=== PATIENT | male | born 1970 | race Caucasian/White ===

== ENCOUNTER 2019-03-12 00:04 | Emergency (ER) | payer MEDICAID ==
[~2019-03-12] VITALS: Ht 177.8 cm; Wt 80.3 kg
[2019-03-12 00:11] VITALS: Ht 177.8 cm; Wt 80.3 kg
[2019-03-12 01:07] LABS: BASOPHIL % 0.2 % (0-2); PLATELET COUNT 316 x10^3mcL (130-400); RED CELL DISTRIBUTION WIDTH 12.9 % (11.5-14.5)
[2019-03-12 01:43] LABS: ALBUMIN 3.2 g/dL (3.4-5.0); ALKALINE PHOSPHATASE 270 U/L (46-116); ALT/SGPT 24 U/L (16-63); AST/SGOT 4 U/L (15-37); BILIRUBIN TOTAL 0.48 mg/dL (0.20-1.00); CARBON DIOXIDE 31.8 mmol/L (21-32); CHLORIDE SERUM 93 mmol/L (98-107); GFR1 > 60 mL/min; MAGNESIUM 2.2 mg/dL (1.8-2.4); PHOSPHOROUS 4.2 mg/dL (2.5-4.9); POTASSIUM SERUM 4.3 mmol/L (3.5-5.1); SODIUM SERUM 130 mmol/L (136-145); TOTAL PROTEIN, SERUM 7.1 g/dL (6.4-8.2)
[2019-03-12 01:47] LABS: GLUCOSE SERUM 580 mg/dL (74-106)
[2019-03-12 06:12] VITALS: BP 135/85
== END 2019-03-12 06:12 | disposition home or self-care (01) ==
LOC: ED 00:04
PROVIDERS: Emergency Medicine
DX: E11.65 Type 2 diabetes mellitus with hyperglycemia (principal); I10 Essential (primary) hypertension; E78.00 Pure hypercholesterolemia, unspecified; Z76.0 Encounter for issue of repeat prescription
CPT/HCPCS: 82962; J1815; J1885; J7030; Q0092

== ENCOUNTER 2019-03-16 13:35 | Inpatient (IN) | payer MEDICAID ==
[~2019-03-16] VITALS: Ht 175.3 cm; Wt 80.3 kg
[2019-03-16 13:37] VITALS: Ht 175.3 cm; Wt 80.3 kg
--- NOTE | 2019-03-16 14:07 | NUR ---
PATIENT AAOX4 PRESENTS BACK TO THE ED S/P CALL THAT HIS LABS DONE A FEW DAYS AGO WERE ABNORMAL. PT PRESENTS IN TRIAGE WITH A HIGH BS OVER >500. PT ADMITS TO NOT BEING COMPLIANT WITH ANTIDIABETIC MEDS DUE SCRIPT /PHYSICIAN ISSUES. PT BREATHING E/U, SKIN WARM DRY AND INTACT. PT C/O BILATERAL LEG PAIN R/T NEUROPATHY. PATIENT PLACED ON MONITORS FOR FURTHER OBSERVATION. WILL CONTINUE TO MONITOR.
--- NOTE | 2019-03-16 14:18 | NUR ---
MEDICATED PER MD ORDERS- SEE EMR
--- NOTE | 2019-03-16 14:50 | NUR ---
MEDICATED PER MD ORDERS- SEE EMR
[2019-03-16 15:17] LABS: CALCIUM 8.6 mg/dL (8.5-10.1); CARBON DIOXIDE 30.6 mmol/L (21-32); CHLORIDE SERUM 98 mmol/L (98-107); CREATININE SERUM 1.1 mg/dL (0.7-1.3); GFR1 > 60 mL/min; POTASSIUM SERUM 4.5 mmol/L (3.5-5.1); SODIUM SERUM 135 mmol/L (136-145)
[2019-03-16 15:22] LABS: GLUCOSE SERUM 461 mg/dL (74-106)
--- NOTE | 2019-03-16 15:49 | NUR ---
REPORT GIVEN TO AB. TRACKING NUMBER:[id number]
[2019-03-16] MEDS ORDERED: GEODON80 MG PO (16:05)
[2019-03-16] MEDS ORDERED: DEPAKOTE ER500 MG PO (16:05)
[2019-03-16] MEDS ORDERED: METFORMIN HCL1000 MG PO (16:06)
[2019-03-16] MEDS ORDERED: PAXIL CR25 MG PO ×2 (16:06→16:07)
[2019-03-16] MEDS ORDERED: JANUVIA100 M1 PO (16:06)
[2019-03-16] MEDS ORDERED: TRAZODONE100 MG PO (16:07)
[2019-03-16] MEDS ORDERED: ASPIR 8181 MG PO (16:07)
[2019-03-16] MEDS ORDERED: LIPI20 PO (16:08)
[2019-03-16] MEDS ORDERED: NEU300 PO (16:10)
[2019-03-16] MEDS ORDERED: AUTOJECT 21 EACH SQ (16:10)
[2019-03-16 18:18] LABS: MAGNESIUM 1.9 mg/dL (1.8-2.4)
--- NOTE | 2019-03-16 18:27 | NUR ---
REPORT PROVIDED TO RITIKA DAVEY FOR CONTINUED CARE OF PATIENT.
[2019-03-16 18:35] LABS: PHOSPHOROUS 4.8 mg/dL (2.5-4.9)
[2019-03-16 18:36] LABS: CHOLESTEROL/HDL RATIO 3.3
[2019-03-16 18:47] LABS: microscopic required? NO
[2019-03-16 19:02] LABS: urine erythrocyte NEGATIVE (NEGATIVE)
[2019-03-16 19:13] LABS: AMPHETAMINE QUAL UR NONE DETECTED (See below)
--- NOTE | 2019-03-16 19:30 | NUR ---
RECEIVED REPORT FROM DAY SHIFT RN. PT RESTING IN BED. AA&O X4. NO SOB NOTED ON ROOM AIR. NO C/O PAIN AT THIS TIME. IV TO RAC, INTACT. SAFETY MEASURES IN PLACE. BED IN LOWEST POSITION. SIDE RAILS UP X2. DEMONSTRATED HOW TO USE THE CALL LIGHT FOR ASSISTANCE. CALL LIGHT WITHIN REACH.
[2019-03-16 20:44] VITALS: BP 155/92
[2019-03-16 21:30] VITALS: BP 171/99
[2019-03-17 05:56] VITALS: BP 129/79
[2019-03-17 06:51] LABS: CALCIUM 8.7 mg/dL (8.5-10.1); CARBON DIOXIDE 27.5 mmol/L (21-32); CHLORIDE SERUM 101 mmol/L (98-107); CREATININE SERUM 0.7 mg/dL (0.7-1.3); GFR1 > 60 mL/min; GLUCOSE SERUM 243 mg/dL (74-106); MAGNESIUM 1.9 mg/dL (1.8-2.4); PHOSPHOROUS 4.2 mg/dL (2.5-4.9); POTASSIUM SERUM 3.9 mmol/L (3.5-5.1); SODIUM SERUM 136 mmol/L (136-145)
--- NOTE | 2019-03-17 06:51 | NUR ---
PT RESTED IN LONG INTERVALS THROUGHOUT SHIFT. NO SOB ON ROOM AIR. BREATHING EVEN AND UNLABORED. NO C/O CHEST PAIN. EPISODES OF ANXIETY. IV TO RAC, NS INFUSING. SAFETY MEASURES MAINTAINED. ALL NEEDS ATTENDED TO. CALL LIGHT WITHIN REACH. WILL ENDORSE CONTINUITY OF CARE TO DAY SHIFT RN.
[2019-03-17 07:40] LABS: BASOPHIL % 0.2 % (0-2); PLATELET COUNT 262 x10^3mcL (130-400); RED CELL DISTRIBUTION WIDTH 13.1 % (11.5-14.5)
--- NOTE | 2019-03-17 07:46 | NUR ---
RECEIVED PATIENT FROM RITIKA AC. PATIENT OBSERVED SEATED UP AT BED EATING AND TOLERATING BREAKFAST. NO COMPLAINTS AT THIS TIME. REVIEWED PLAN FOR TODAY WITH PATIENT INCLUDING MEDICATIONS AND BLOOD CULTURE RESULTS. PATIENT AWARE AND AGREES. WILL WAIT FOR CARE TEAM TO COME SPEAK WITH PATIENT.
[2019-03-17 08:46] VITALS: BP 132/85
--- NOTE | 2019-03-17 10:05 | NUR ---
DR GRADY AND DR GROVES IN TO SPEAK WITH PATIENT. STATES THAT PATIENT MAY BE ABLE TO GO HOME TODAY DUE TO NEGATIVE BLOOD CULTURE. WILL AWAIT FOR POSSIBLE DISCHARGE ORDER. PATIENT STATES THAT HE HAS NERVE PAIN AND REQUESTS ADDITIONAL DOSAGE OF GABAPENTIN, WILL INFORM DR GROVES. PRN NORCO PO ADMINISTERED AT THIS TIME, EFFECTIVE FOR PAIN CONTROL PER PATIENT. CALL LIGHT IN REACH.
[2019-03-17] MEDS ORDERED: A AND D OINTM42.5 GM TOP (10:53)
[2019-03-17 12:00] VITALS: BP 132/85
[2019-03-17 12:19] VITALS: BP 103/60
--- NOTE | 2019-03-17 13:10 | NUR ---
DISCHARGE INSTRUCTIONS GIVEN AND EXPLAINED TO PATIENT. ALL QUESTIONS ANSWERED AT THIS TIME. PATIENT AWARE TO FOLLOW UP WITH PCP WITHIN 7 DAYS AND THAT HE HAS NEW PRESCRIPTION AT [facility]. IV CATHETER REMOVED AND INTACT. SIGNATURES OBTAINED. DIALED [facility] FOR MANAGER OF APPLICATION DEVELOPMENT. WILL WAIT FOR STAFF TO ARRIVE AND MANAGER OF APPLICATION DEVELOPMENT PATIENT.
--- NOTE | 2019-03-17 13:36 | NUR ---
STAFF FROM [facility] ARRIVED FOR PATIENT. PATIENT WITH BELONGINGS AND DISCHARGE PACKET ESCORTED DOWN TO LOBBY.
== END 2019-03-17 13:34 | disposition home or self-care (01) | DRG 249 ==
LOC: ED 13:35 → MU 17:23
PROVIDERS: Emergency Medicine; ADMIT General Practice
DX: K52.9 Noninfective gastroenteritis and colitis, unspecified (principal); D68.69 Other thrombophilia; E11.65 Type 2 diabetes mellitus with hyperglycemia; E78.5 Hyperlipidemia, unspecified; F31.9 Bipolar disorder, unspecified
CPT/HCPCS: 36600; 82962; G0378; J1815; J7030; Q0092

== ENCOUNTER 2019-03-19 19:52 | Emergency (ER) | payer MEDICAID ==
[~2019-03-19] VITALS: Ht 175.3 cm; Wt 85.3 kg
[~2019-03-19 19:52] MED LIST: A AND D OINTM42.5 GM TOP; ASPIR 8181 MG PO; AUTOJECT 21 EACH SQ; DEPAKOTE ER500 MG PO; GEODON80 MG PO; JANUVIA100 M1 PO; LIPI20 PO; METFORMIN HCL1000 MG PO; NEU300 PO; PAXIL CR25 MG PO; TRAZODONE100 MG PO
[2019-03-19 20:00] VITALS: Ht 175.3 cm; Wt 85.3 kg
[2019-03-19 20:46] LABS: BASOPHIL % 0.3 % (0-2); PLATELET COUNT 237 x10^3mcL (130-400); RED CELL DISTRIBUTION WIDTH 12.9 % (11.5-14.5)
[2019-03-19 21:01] LABS: ALBUMIN 2.8 g/dL (3.4-5.0); ALKALINE PHOSPHATASE 173 U/L (46-116); ALT/SGPT 12 U/L (16-63); AST/SGOT 4 U/L (15-37); BILIRUBIN TOTAL 0.23 mg/dL (0.20-1.00); CALCIUM 8.5 mg/dL (8.5-10.1); CARBON DIOXIDE 30.6 mmol/L (21-32); CHLORIDE SERUM 95 mmol/L (98-107); CREATININE SERUM 0.8 mg/dL (0.7-1.3); GFR1 > 60 mL/min; GLUCOSE SERUM 393 mg/dL (74-106); LIPASE 110 IU/L (73-393); POTASSIUM SERUM 4.2 mmol/L (3.5-5.1); SODIUM SERUM 129 mmol/L (136-145); TOTAL PROTEIN, SERUM 6.2 g/dL (6.4-8.2)
[2019-03-19 21:20] LABS: AMPHETAMINE QUAL UR NONE DETECTED (See below)
[2019-03-19 23:37] VITALS: BP 136/88
== END 2019-03-19 23:37 | disposition home or self-care (01) ==
LOC: ED 19:52
PROVIDERS: Emergency Medicine
DX: E11.65 Type 2 diabetes mellitus with hyperglycemia (principal); I10 Essential (primary) hypertension; E78.00 Pure hypercholesterolemia, unspecified
CPT/HCPCS: 82962; J2270; J2405; J7030

== ENCOUNTER → 2019-03-23 | Emergency (ER) | payer MEDICAID ==
[~2019-03-23] VITALS: Ht 175.3 cm; Wt 85.5 kg
[2019-03-23 17:23] VITALS: BP 163/95; Ht 175.3 cm; Wt 85.5 kg
== END ==
LOC: ED 16:50
DX: Z53.21 Procedure and treatment not carried out due to patient leaving prior to being seen by health care provider (principal)
CPT/HCPCS: 82962

== ENCOUNTER 2019-07-02 11:09 | Inpatient (IN) | payer OTHER ==
[~2019-07-02] VITALS: Ht 175.3 cm; Wt 89.4 kg
[2019-07-02 11:38] LABS: BASOPHIL % 0.5 % (0-2); PLATELET COUNT 146 x10^3mcL (130-400); RED CELL DISTRIBUTION WIDTH 14.3 % (11.5-14.5)
[2019-07-02 11:43] VITALS: Ht 175.3 cm; Wt 89.4 kg
[2019-07-02 11:46] LABS: CALCIUM 8.9 mg/dL (8.5-10.1); CARBON DIOXIDE 23.9 mmol/L (21-32); CHLORIDE SERUM 105 mmol/L (98-107); CREATININE SERUM 0.8 mg/dL (0.7-1.3); GFR1 > 60 mL/min; GLUCOSE SERUM 166 mg/dL (74-106); POTASSIUM SERUM 4.5 mmol/L (3.5-5.1); SODIUM SERUM 138 mmol/L (136-145)
[2019-07-02 11:50] LABS: ALKALINE PHOSPHATASE 58 U/L (46-116); ALT/SGPT 20 U/L (16-63); AST/SGOT 20 U/L (15-37); BILIRUBIN TOTAL 0.3 mg/dL (0.20-1.00); TOTAL PROTEIN, SERUM 6.6 g/dL (6.4-8.2)
[2019-07-02 11:51] LABS: ALBUMIN 3.2 g/dL (3.4-5.0)
[2019-07-02 14:35] LABS: microscopic required? NO
[2019-07-02 14:50] LABS: T3 TOTAL 1.35 ng/mL
[2019-07-02 15:05] LABS: urine erythrocyte NEGATIVE (NEGATIVE)
[2019-07-02 15:24] LABS: MAGNESIUM 2.1 mg/dL (1.8-2.4); PHOSPHOROUS 3.5 mg/dL (2.5-4.9)
[2019-07-02 15:26] LABS: AMPHETAMINE QUAL UR NONE DETECTED (See below)
[2019-07-02 15:28] LABS: CHOLESTEROL/HDL RATIO 1.9
[2019-07-02 15:50] LABS: FREE T4 1.04 ng/dL (0.76-1.46); FREE THYROXINE INDEX 2.9 ug/dL (1.4-4.5); T4(THYROXINE) 8.6 ug/dL (4.7-13.3)
[2019-07-02 18:48] VITALS: BP 153/79
[2019-07-02 21:46] VITALS: BP 115/62
[2019-07-03 06:45] VITALS: BP 140/82
[2019-07-03 06:50] LABS: CALCIUM 8.9 mg/dL (8.5-10.1); CARBON DIOXIDE 27.8 mmol/L (21-32); CHLORIDE SERUM 107 mmol/L (98-107); CREATININE SERUM 0.8 mg/dL (0.7-1.3); GFR1 > 60 mL/min; GLUCOSE SERUM 170 mg/dL (74-106); PHOSPHOROUS 3.8 mg/dL (2.5-4.9); POTASSIUM SERUM 3.9 mmol/L (3.5-5.1); SODIUM SERUM 141 mmol/L (136-145)
[2019-07-03 06:54] LABS: BASOPHIL % 0.3 % (0-2); PLATELET COUNT 221 x10^3mcL (130-400); RED CELL DISTRIBUTION WIDTH 14.4 % (11.5-14.5)
[2019-07-03 11:14] VITALS: BP 136/83
[2019-07-03 16:53] VITALS: BP 137/86
== END 2019-07-03 20:26 | disposition left against medical advice (07) | DRG 812 ==
LOC: ED 11:09 → DU 14:01 → MU 07-03 10:58
PROVIDERS: Specialist; ADMIT Family Medicine
DX: T38.3X1A Poisoning by insulin and oral hypoglycemic [antidiabetic] drugs, accidental (unintentional), initial encounter (principal); G92 Toxic encephalopathy; E11.649 Type 2 diabetes mellitus with hypoglycemia without coma; E44.1 Mild protein-calorie malnutrition; D64.9 Anemia, unspecified; E78.00 Pure hypercholesterolemia, unspecified; I10 Essential (primary) hypertension; F31.9 Bipolar disorder, unspecified; E78.5 Hyperlipidemia, unspecified; Z53.29 Procedure and treatment not carried out because of patient's decision for other reasons; Y92.89 Other specified places as the place of occurrence of the external cause; Z68.28 Body mass index [BMI] 28.0-28.9, adult; Z79.899 Other long term (current) drug therapy; Z79.4 Long term (current) use of insulin
CPT/HCPCS: 36600; 82962; 83880; 84439; G0378; G0480; J2060; J7030; Q0092

== ENCOUNTER 2019-09-30 17:52 | Emergency (ER) | payer OTHER, SELFPAY ==
[~2019-09-30] VITALS: Ht 172.7 cm; Wt 81.6 kg
[2019-09-30 19:16] LABS: BASOPHIL % 0.4 % (0-2); PLATELET COUNT 207 x10^3mcL (130-400); RED CELL DISTRIBUTION WIDTH 13.8 % (11.5-14.5)
[2019-09-30 19:18] VITALS: Ht 172.7 cm; Wt 81.6 kg
[2019-09-30 19:33] LABS: CALCIUM 8.8 mg/dL (8.5-10.1); CARBON DIOXIDE 29.8 mmol/L (21-32); CHLORIDE SERUM 105 mmol/L (98-107); CREATININE SERUM 1.1 mg/dL (0.7-1.3); GFR1 > 60 mL/min; GLUCOSE SERUM 277 mg/dL (74-106); POTASSIUM SERUM 4.1 mmol/L (3.5-5.1); SODIUM SERUM 141 mmol/L (136-145)
[2019-09-30 19:37] LABS: ALBUMIN 3.4 g/dL (3.4-5.0); ALKALINE PHOSPHATASE 61 U/L (46-116); ALT/SGPT 22 U/L (16-63); AST/SGOT 14 U/L (15-37); BILIRUBIN TOTAL 0.6 mg/dL (0.20-1.00); C REACTIVE PROTEIN 0.9 mg/dL (<=0.9); LACTIC DEHYDROGENASE (LDH) 149 U/L (100-190); TOTAL PROTEIN, SERUM 6.8 g/dL (6.4-8.2)
[2019-09-30 22:10] VITALS: BP 137/89
== END 2019-09-30 22:10 | disposition home or self-care (01) ==
LOC: ED 17:52
PROVIDERS: Emergency Medicine
DX: U07.1 COVID-19 (principal); I10 Essential (primary) hypertension; E11.9 Type 2 diabetes mellitus without complications; E78.00 Pure hypercholesterolemia, unspecified; F31.9 Bipolar disorder, unspecified
CPT/HCPCS: 83880; 85378; 87804; J1885; Q0092; U0003-CS

== ENCOUNTER 2019-10-01 08:09 | Emergency (ER) | payer OTHER, SELFPAY ==
[~2019-10-01] VITALS: Ht 175.3 cm; Wt 86.2 kg
[2019-10-01 08:30] VITALS: Ht 175.3 cm; Wt 86.2 kg
[2019-10-01 09:58] VITALS: BP 140/93
== END 2019-10-01 09:50 | disposition home or self-care (01) ==
LOC: ED 08:09
DX: R05 Cough (principal); I10 Essential (primary) hypertension; E11.9 Type 2 diabetes mellitus without complications; E78.00 Pure hypercholesterolemia, unspecified; Z20.828 Contact with and (suspected) exposure to other viral communicable diseases
CPT/HCPCS: Q0092

== ENCOUNTER 2019-10-02 19:51 | Emergency (ER) | payer OTHER, SELFPAY ==
[~2019-10-02] VITALS: Ht 170.2 cm; Wt 81.6 kg
[2019-10-02 20:41] VITALS: Ht 170.2 cm; Wt 81.6 kg
[2019-10-02 21:21] VITALS: BP 162/100
== END 2019-10-02 21:21 | disposition home or self-care (01) ==
LOC: ED 19:51
DX: B34.9 Viral infection, unspecified (principal); I10 Essential (primary) hypertension; E11.9 Type 2 diabetes mellitus without complications; E78.00 Pure hypercholesterolemia, unspecified; F31.9 Bipolar disorder, unspecified; Z76.0 Encounter for issue of repeat prescription

== ENCOUNTER 2019-10-10 14:00 | Inpatient (IN) | payer OTHER, SELFPAY ==
[~2019-10-10] VITALS: Ht 172.7 cm; Wt 72.6 kg
[2019-10-10 15:21] LABS: UA SPECIFIC GRAVITY 1.015 (1.005-1.035); microscopic required? YES; urine erythrocyte NEGATIVE (NEGATIVE)
[2019-10-10 16:03] LABS: BASOPHIL % 0.2 % (0-2); PLATELET COUNT 317 x10^3mcL (130-400); RED CELL DISTRIBUTION WIDTH 13.2 % (11.5-14.5)
[2019-10-10 16:14] LABS: CALCIUM 8.2 mg/dL (8.5-10.1); CARBON DIOXIDE 23.8 mmol/L (21-32); CHLORIDE SERUM 101 mmol/L (98-107); CREATININE SERUM 0.9 mg/dL (0.7-1.3); GFR1 > 60 mL/min; GLUCOSE SERUM 214 mg/dL (74-106); POTASSIUM SERUM 3.9 mmol/L (3.5-5.1); SODIUM SERUM 135 mmol/L (136-145)
[2019-10-10 16:19] LABS: ALKALINE PHOSPHATASE 79 U/L (46-116); ALT/SGPT 35 U/L (16-63); AST/SGOT 24 U/L (15-37); BILIRUBIN TOTAL 0.56 mg/dL (0.20-1.00); LACTIC DEHYDROGENASE (LDH) 243 U/L (100-190); TOTAL PROTEIN, SERUM 6.5 g/dL (6.4-8.2)
[2019-10-10 16:21] LABS: ALBUMIN 2.2 g/dL (3.4-5.0); C REACTIVE PROTEIN < 0.2 mg/dL (<=0.9)
[2019-10-10 19:06] LABS: T3 TOTAL 1.06 ng/mL
[2019-10-10 19:28] LABS: CHOLESTEROL/HDL RATIO 4.7
[2019-10-10 19:50] LABS: FREE T4 1.66 ng/dL (0.76-1.46); FREE THYROXINE INDEX 2.7 ug/dL (1.4-4.5); T4(THYROXINE) 7.5 ug/dL (4.7-13.3)
[2019-10-10 19:56] VITALS: BP 114/73
[2019-10-10 21:35] VITALS: BP 112/82
[2019-10-11 05:10] VITALS: BP 139/79
[2019-10-11 07:16] LABS: BASOPHIL % 0.1 % (0-2); PLATELET COUNT 358 x10^3mcL (130-400); RED CELL DISTRIBUTION WIDTH 13.3 % (11.5-14.5)
[2019-10-11 07:23] LABS: CALCIUM 8.6 mg/dL (8.5-10.1); CARBON DIOXIDE 25.5 mmol/L (21-32); CHLORIDE SERUM 101 mmol/L (98-107); CREATININE SERUM 0.7 mg/dL (0.7-1.3); GFR1 > 60 mL/min; GLUCOSE SERUM 178 mg/dL (74-106); MAGNESIUM 1.9 mg/dL (1.8-2.4); PHOSPHOROUS 2.8 mg/dL (2.5-4.9); POTASSIUM SERUM 4.2 mmol/L (3.5-5.1); SODIUM SERUM 135 mmol/L (136-145)
[2019-10-11 08:31] VITALS: BP 129/69
[2019-10-11 14:34] VITALS: BP 119/76
[2019-10-11 17:17] VITALS: BP 147/75
[2019-10-11 21:30] VITALS: BP 122/81
[2019-10-12 04:58] VITALS: BP 120/79
[2019-10-12 07:19] LABS: BASOPHIL % 0.4 % (0-2); RED CELL DISTRIBUTION WIDTH 13.1 % (11.5-14.5)
[2019-10-12 07:28] LABS: PLATELET COUNT 474 x10^3mcL (130-400)
[2019-10-12 07:36] LABS: CALCIUM 8.9 mg/dL (8.5-10.1); CARBON DIOXIDE 28.8 mmol/L (21-32); CHLORIDE SERUM 101 mmol/L (98-107); CREATININE SERUM 0.8 mg/dL (0.7-1.3); GFR1 > 60 mL/min; GLUCOSE SERUM 285 mg/dL (74-106); PHOSPHOROUS 3.1 mg/dL (2.5-4.9); POTASSIUM SERUM 4.5 mmol/L (3.5-5.1); SODIUM SERUM 135 mmol/L (136-145)
[2019-10-12 09:07] VITALS: BP 118/64
[2019-10-12 12:28] VITALS: BP 120/71
[2019-10-12 16:05] VITALS: BP 114/60
[2019-10-12 20:31] VITALS: BP 122/78
[2019-10-13 04:37] VITALS: BP 115/70
[2019-10-13 07:24] LABS: BASOPHIL % 0.2 % (0-2); RED CELL DISTRIBUTION WIDTH 13.2 % (11.5-14.5)
[2019-10-13 07:39] LABS: PLATELET COUNT 577 x10^3mcL (130-400)
[2019-10-13 08:03] LABS: C REACTIVE PROTEIN 6.1 mg/dL (<=0.9); CALCIUM 9.1 mg/dL (8.5-10.1); CARBON DIOXIDE 27.7 mmol/L (21-32); CHLORIDE SERUM 100 mmol/L (98-107); CREATININE SERUM 0.9 mg/dL (0.7-1.3); GFR1 > 60 mL/min; GLUCOSE SERUM 363 mg/dL (74-106); POTASSIUM SERUM 4.9 mmol/L (3.5-5.1); SODIUM SERUM 136 mmol/L (136-145)
[2019-10-13 08:44] VITALS: BP 98/60
[2019-10-13 12:03] VITALS: BP 105/68
[2019-10-13 16:24] VITALS: BP 111/63
[2019-10-13 21:19] VITALS: BP 130/74
[2019-10-14 06:14] VITALS: BP 108/73
[2019-10-14 07:35] LABS: CALCIUM 8.9 mg/dL (8.5-10.1); CARBON DIOXIDE 29.4 mmol/L (21-32); CHLORIDE SERUM 98 mmol/L (98-107); GFR1 > 60 mL/min; GLUCOSE SERUM 428 mg/dL (74-106); POTASSIUM SERUM 4.6 mmol/L (3.5-5.1); SODIUM SERUM 133 mmol/L (136-145)
[2019-10-14 09:30] VITALS: BP 124/70
[2019-10-14 12:09] LABS: BASOPHIL % 0.4 % (0-2); RED CELL DISTRIBUTION WIDTH 13.3 % (11.5-14.5)
[2019-10-14 12:10] LABS: PLATELET COUNT 631 x10^3mcL (130-400)
[2019-10-14 17:01] VITALS: BP 110/64
[2019-10-14 21:21] VITALS: BP 102/69
[2019-10-15 06:06] VITALS: BP 107/73
[2019-10-15 07:09] LABS: BASOPHIL % 0.2 % (0-2); RED CELL DISTRIBUTION WIDTH 12.9 % (11.5-14.5)
[2019-10-15 07:33] LABS: CALCIUM 9.4 mg/dL (8.5-10.1); CARBON DIOXIDE 30.6 mmol/L (21-32); CHLORIDE SERUM 98 mmol/L (98-107); CREATININE SERUM 0.8 mg/dL (0.7-1.3); GFR1 > 60 mL/min; GLUCOSE SERUM 252 mg/dL (74-106); POTASSIUM SERUM 4.6 mmol/L (3.5-5.1); SODIUM SERUM 136 mmol/L (136-145)
[2019-10-15 08:03] LABS: PLATELET COUNT 774 x10^3mcL (130-400)
[2019-10-15 08:10] VITALS: BP 110/66
[2019-10-15] MEDS ORDERED: MEDROL DOSEPAK4 MG PO (08:32)
[2019-10-15] MEDS ORDERED: ELIQUIS2.5 MG PO (08:41)
[2019-10-15 13:16] VITALS: BP 110/66
[2019-10-15 13:57] VITALS: BP 112/75
[2019-10-15 14:28] VITALS: Ht 172.7 cm; Wt 72.6 kg
== END 2019-10-15 19:09 | disposition home or self-care (01) | DRG 720 ==
LOC: ED 14:00 → DU 15:33
PROVIDERS: Emergency Medicine; Internal Medicine; ADMIT Family Medicine; ATTEND Family Medicine
DX: A41.89 Other specified sepsis (principal); U07.1 COVID-19; J96.01 Acute respiratory failure with hypoxia; E43 Unspecified severe protein-calorie malnutrition; E87.2 Acidosis; D68.69 Other thrombophilia; J12.89 Other viral pneumonia; E11.9 Type 2 diabetes mellitus without complications; E78.00 Pure hypercholesterolemia, unspecified; F29 Unspecified psychosis not due to a substance or known physiological condition; F31.9 Bipolar disorder, unspecified; E78.5 Hyperlipidemia, unspecified; I10 Essential (primary) hypertension; Z79.899 Other long term (current) drug therapy; Z79.4 Long term (current) use of insulin; Z79.82 Long term (current) use of aspirin; Z68.24 Body mass index [BMI] 24.0-24.9, adult
CPT/HCPCS: 36600; 82962; 83880; 84439; 87804; G0378; J0456; J0696; J1100; J1644; J2405; J7030; J7050; Q0092; U0003-CS

== ENCOUNTER 2019-10-26 21:00 | Emergency (ER) | payer OTHER, SELFPAY ==
[~2019-10-26] VITALS: Ht 177.8 cm; Wt 90.7 kg
[~2019-10-26 21:00] MED LIST changes: +ELIQUIS2.5 MG PO; +MEDROL DOSEPAK4 MG PO
[2019-10-26 21:03] VITALS: Ht 177.8 cm; Wt 90.7 kg
[2019-10-26 21:41] LABS: microscopic required? YES; urine erythrocyte TRACE (NEGATIVE)
[2019-10-26 22:50] LABS: BASOPHIL % 0.4 % (0-2); PLATELET COUNT 216 x10^3mcL (130-400)
[2019-10-26 22:54] LABS: ALKALINE PHOSPHATASE 147 U/L (46-116); ALT/SGPT 24 U/L (16-63); AST/SGOT 12 U/L (15-37); BILIRUBIN TOTAL 0.4 mg/dL (0.20-1.00); CALCIUM 7.8 mg/dL (8.5-10.1); CARBON DIOXIDE 34.1 mmol/L (21-32); CHLORIDE SERUM 97 mmol/L (98-107); GFR1 > 60 mL/min; LACTIC DEHYDROGENASE (LDH) 166 U/L (100-190); POTASSIUM SERUM 4.9 mmol/L (3.5-5.1); SODIUM SERUM 131 mmol/L (136-145)
[2019-10-26 22:55] LABS: ALBUMIN 2.5 g/dL (3.4-5.0); TOTAL PROTEIN, SERUM 5.3 g/dL (6.4-8.2)
[2019-10-26 23:06] LABS: C REACTIVE PROTEIN 0.3 mg/dL (<=0.9)
[2019-10-26 23:09] LABS: GLUCOSE SERUM 507 mg/dL (74-106)
[2019-10-27 02:56] LABS: AMPHETAMINE QUAL UR NONE DETECTED (See below)
[2019-10-27 03:59] LABS: PLATELET COUNT 234 x10^3mcL (130-400); RED CELL DISTRIBUTION WIDTH 13.9 % (11.5-14.5)
[2019-10-27 04:06] LABS: BASOPHIL % 0 % (0-2)
[2019-10-27 04:10] LABS: CALCIUM 8.6 mg/dL (8.5-10.1); CARBON DIOXIDE 22.6 mmol/L (21-32); CHLORIDE SERUM 99 mmol/L (98-107); CREATININE SERUM 0.8 mg/dL (0.7-1.3); GFR1 > 60 mL/min; GLUCOSE SERUM 427 mg/dL (74-106); POTASSIUM SERUM 4.9 mmol/L (3.5-5.1); SODIUM SERUM 133 mmol/L (136-145)
[2019-10-27 06:28] VITALS: BP 147/100
== END 2019-10-27 06:28 | disposition home or self-care (01) ==
LOC: ED 21:00
PROVIDERS: Emergency Medicine; Student in an Organized Health Care Education/Training Program
DX: M79.10 Myalgia, unspecified site (principal); U07.1 COVID-19; J12.89 Other viral pneumonia; I10 Essential (primary) hypertension; E11.9 Type 2 diabetes mellitus without complications; E78.00 Pure hypercholesterolemia, unspecified
CPT/HCPCS: 82962; 83880; G0480; J1100; J1200; J1815; J2765; J7030; Q0092

== ENCOUNTER 2019-12-23 13:08 | Emergency (ER) | payer OTHER ==
[~2019-12-23] VITALS: Ht 172.7 cm; Wt 77.1 kg
[2019-12-23 13:19] VITALS: Ht 172.7 cm; Wt 77.1 kg
[2019-12-23 14:35] LABS: BASOPHIL % 0.3 % (0-2); PLATELET COUNT 193 x10^3mcL (130-400); RED CELL DISTRIBUTION WIDTH 13.7 % (11.5-14.5)
[2019-12-23 14:51] LABS: AMPHETAMINE QUAL UR NONE DETECTED (See below)
[2019-12-23 14:52] LABS: ALBUMIN 3.4 g/dL (3.4-5.0); ALKALINE PHOSPHATASE 119 U/L (46-116); ALT/SGPT 19 U/L (16-63); AST/SGOT 10 U/L (15-37); BILIRUBIN TOTAL 0.69 mg/dL (0.20-1.00); CALCIUM 8.4 mg/dL (8.5-10.1); CARBON DIOXIDE 25.8 mmol/L (21-32); CHLORIDE SERUM 99 mmol/L (98-107); CREATININE SERUM 0.8 mg/dL (0.7-1.3); GFR1 > 60 mL/min; GLUCOSE SERUM 445 mg/dL (74-106); SODIUM SERUM 132 mmol/L (136-145); TOTAL PROTEIN, SERUM 6.6 g/dL (6.4-8.2)
[2019-12-23 16:15] VITALS: BP 128/79
== END 2019-12-23 16:15 | disposition home or self-care (01) ==
LOC: ED 13:08
PROVIDERS: Emergency Medicine
DX: F41.9 Anxiety disorder, unspecified (principal); E11.65 Type 2 diabetes mellitus with hyperglycemia; I10 Essential (primary) hypertension; E78.00 Pure hypercholesterolemia, unspecified; F31.9 Bipolar disorder, unspecified
CPT/HCPCS: 82962; J2060; J7030; Q0092